=== PATIENT | male | born 1970 | race Caucasian/White ===

== ENCOUNTER 2020-05-08 07:12 | Day surgery (SDC) | payer BC, OTHER ==
[~2020-05-08] VITALS: Ht 182.9 cm; Wt 78.0 kg
[~2020-05-08 07:12] MED LIST: ALEVE220 MG PO; IBUPROFEN 200200 M1 PO; TRAMADOL 50 MG50 MG PO; TRELEGY ELLIPT1 EACH
[2020-05-08 08:34] VITALS: BP 130/79
[2020-05-08] MEDS ORDERED: NORCO 10-325 T1 EACH PO (11:17)
[2020-05-08 11:29] VITALS: BP 130/79
--- NOTE | 2020-05-19 09:16 | O ---
[facility] [place] [address] OPERATIVE REPORT Name: JOSE J OROPEZA Room #: [facility]..#: [id number] Admission: 05/08/20 Attend Phys: Micha Miranda, Discharge: 05/08/20 Date of : 66 Report #: [id number] THIS REPORT FOR: cc: YESENIA CLAUDIO Physician not on staff Micha Miranda MD ~ CC: YESENIA Miranda Physician staff DATE OF SERVICE: 05/08/2020 PREOPERATIVE DIAGNOSIS: Bilateral recurrent inguinal hernias. POSTOPERATIVE DIAGNOSIS: Bilateral recurrent inguinal hernias. OPERATION: Laparoscopic repair of bilateral recurrent inguinal hernias with mesh. SURGEON: Micha Miranda MD ANESTHESIA: General. ESTIMATED BLOOD LOSS: Minimal. SPECIMENS: None. DESCRIPTION OF PROCEDURE: After informed consent was obtained, the patient was brought to the operating room and placed supine. SCDs were placed and working, preoperative antibiotics were administered, general anesthesia was induced. The abdomen was prepped and draped in the usual sterile fashion. A Woodward catheter was not placed as the patient had voided prior to coming to the operating room. A 10 mm incision was made below the umbilicus. Fascia was incised and a trocar was placed. Pneumoperitoneum was established. Left and right lower quadrant 5 mm trocars were placed. The patient was placed in Trendelenburg position. The peritoneum at the right ASIS was scored. Peritoneum was incised medially and reflected inferiorly to show the pubic bone and the cord structures. He had a small indirect hernia. The sac was fully reduced. Cord structures were protected at all times. A large Bard 3DMax light mesh was inserted. It was tacked to Temo's ligament with 2 absorbable tacks. I then reapproximated the peritoneum with Stratafix suture. This was covered widely and there was no exposed mesh. Attention was then directed to the left side. Again, the peritoneum was incised [address] [address] OPERATIVE REPORT Name: JOSE J OROPEZA Room #: [facility] M..#: [id number] Admission: 05/08/20 Attend Phys: Micha Miranda, Discharge: 05/08/20 Date of : 66 Report #: [id number] at the left ASIS. Peritoneum was incised medially and reflected inferiorly. This allowed visualization of the pubic bone. This allowed visualization of the cord structures. He had indirect hernia. This was fully reduced. Cord structures were protected at all times. A large Bard 3DMax light mesh was inserted. It was tacked to Temo's ligament with 2 absorbable tacks. I then reapproximated the peritoneum with a running Stratafix suture. There was 100% coverage of the mesh. The ports were then removed under direct vision. Prior to removing the ports, I instilled both groins with approximately 30 mL of anesthetic solution mixed with a mixture of ropivacaine and Marcaine. The ports were removed under direct vision. The fascia was closed with a [id number] 0 Vicryl. Skin was closed with 4-0 Monocryl. Incisions were sealed with Dermabond. COMPLICATIONS: None. DISPOSITION: The patient was taken to recovery in satisfactory condition. <ELECTRONICALLY SIGNED> By: Micha Miranda MD 05/19/20 0916 [id number] Micha Miranda MD /nt
== END 2020-05-08 13:00 | disposition home or self-care (01) ==
LOC: OR 07:12 → TBA 07:15 → OR 09:55
PROVIDERS: ATTEND Surgery
DX: K40.21 Bilateral inguinal hernia, without obstruction or gangrene, recurrent (principal); J45.909 Unspecified asthma, uncomplicated; Z11.59 Encounter for screening for other viral diseases; Z98.890 Other specified postprocedural states; Z79.899 Other long term (current) drug therapy; Z87.442 Personal history of urinary calculi
CPT/HCPCS: 50010; 50101; 50249; 50411; 50507; 50555; 50558; 50848; 52265; 53307; 54022; 54118; 56462; 56525; 56526; 56531; 62110; 62900; 70005

== ENCOUNTER 2020-05-14 17:12 | Emergency (ER) | payer BC, OTHER ==
[~2020-05-14] VITALS: Ht 182.9 cm; Wt 79.4 kg
[~2020-05-14 17:12] MED LIST changes: +NORCO 10-325 T1 EACH PO
[2020-05-14 19:53] LABS: ABSOLUTE NEUTROPHILS 5.1 thou/uL (1.4-8.2); BASOPHILS 0.2 % (0.0-2.0); EOSINOPHILS 4.4 % (0.0-3.0); HEMATOCRIT 43.1 % (42.0-52.0); HEMOGLOBIN 14.8 gm/dL (14.0-18.0); LYMPHOCYTES 19.5 % (24.0-44.0); MCH 32.7 pg (26.0-34.0); MCHC 34.3 g/dL (28.0-37.0); MCV 95.2 fL (80.0-100.0); MONOCYTES 6.8 % (1.0-8.0); PLATELET COUNT 296 thou/uL (150-400); POLYS 69.1 % (36.0-66.0); RBC 4.53 mil/uL (4.50-6.00); RDW 12.4 % (10.5-14.5); WBC 7.4 thou/uL (4.0-11.0)
[2020-05-14 20:02] LABS: POTASSIUM 3.1 mmol/L (3.5-5.1)
[2020-05-14 21:15] LABS: URINE BILIRUBIN NEGATIVE (Negative); URINE BLOOD TRACE (Negative); URINE CLARITY CLEAR; URINE COLOR YELLOW; URINE GLUCOSE-RANDOM* NEGATIVE (Negative); URINE KETONES NEGATIVE (Negative); URINE LEUKOCYTES-REFLEX NEGATIVE (Negative); URINE NITRITE-REFLEX NEGATIVE (Negative); URINE PROTEIN (DIPSTICK) NEGATIVE (Negative); URINE SPECIFIC GRAVITY >= 1.030 (1.005-1.035); URINE UROBILINOGEN 0.2 E.U./dl (0.2-1.0)
[2020-05-14 22:22] VITALS: BP 129/80
== END 2020-05-14 22:59 | disposition home or self-care (01) ==
LOC: ER 17:12
PROVIDERS: Emergency Medicine; Physician Assistant
DX: E86.0 Dehydration (principal); R33.9 Retention of urine, unspecified; J45.909 Unspecified asthma, uncomplicated; Z87.442 Personal history of urinary calculi; Z79.899 Other long term (current) drug therapy; Z91.013 Allergy to seafood